=== PATIENT | female | born 1955 | race African-American/Black ===

== ENCOUNTER 2018-01-21 15:49 | Emergency (ER) | payer BC ==
[2018-01-21] MEDS: SOD CHLORIDE 0.9% 1,000 ML IV (16:58)
[2018-01-21] MEDS: ONDANSETRON 4 MG INJ IV (16:59)
[2018-01-21] MEDS: morphine 4 MG/ML VIAL IV (17:00)
[2018-01-21 17:23] LABS: ADD MAN DIFF? NO
[2018-01-21 17:27] LABS: WHITE BLOOD COUNT 6.3 10^3/ul (4.8-10.8)
[2018-01-21 17:27] LABS: BASOPHILS % 0.6 % (0.0-2.0); EOSINOPHILS # 0.2 10^3/ul (0.0-0.5); EOSINOPHILS % 2.9 % (0.0-7.0); HEMATOCRIT 38.8 % (37.0-47.0); HEMOGLOBIN 12.3 g/dl (12.0-16.0); IMMATURE GRANS #M 0.02 10^3/ul; IMMATURE GRANS % (M) 0.3 %; LYMPHOCYTES # 2.3 10^3/ul (0.8-2.9); LYMPHOCYTES % 37.3 % (15.0-51.0); MEAN CORPUSCULAR HEMOGLOBIN 26.5 pg (29.0-33.0); MEAN CORPUSCULAR HGB CONC 31.7 g/dl (32.0-37.0); MEAN CORPUSCULAR VOLUME 83.6 fl (82.0-101.0); MEAN PLATELET VOLUME 10.9 fl (7.4-10.4); MONOCYTE # 0.6 10^3/ul (0.3-0.9); MONOCYTES % 9.3 % (0.0-11.0); NEUTROPHIL # 3.1 10^3/ul (1.6-7.5); NEUTROPHILS % 49.6 % (39.0-77.0); PLATELET COUNT 234 10^3/UL (140-415); RED BLOOD COUNT 4.64 10^6/ul (4.20-5.40); RED CELL DISTRIBUTION WIDTH 14.1 % (11.5-14.5)
[2018-01-21 17:44] LABS: INR 0.91; PROTIME 12.3 Sec (11.9-14.9)
[2018-01-21 17:45] LABS: PARTIAL THROMBOPLASTIN TIME 28.5 Sec (25.0-35.0)
[2018-01-21 17:48] LABS: ANION GAP 13 (8-16); BLOOD UREA NITROGEN 12 mg/dl (7-20); CALCIUM 9.5 mg/dl (8.4-10.2); CARBON DIOXIDE 25 mmol/L (21-31); CHLORIDE 108 mmol/L (97-110); CREATININE 0.78 mg/dl (0.44-1.00); GLUCOSE 98 mg/dl (70-220); SODIUM 142 mmol/L (135-144)
[2018-01-21] MEDS: KETOROLAC 30 MG INJ IV (18:19)
== END 2018-01-21 18:43 | disposition home or self-care (01) ==
LOC: FTE 15:49
DX: R51 Headache (principal)
CPT/HCPCS: 36415; 70450; 80048; 85025; 85610; 85730; 96361; 96374; 96375; 99285-25